=== PATIENT | female | born 1970 | race Caucasian/White ===

== ENCOUNTER → 2017-12-24 | Outpatient (CLI) | payer BC ==
[~2017-12-24] MED LIST: ALPR.5; ESCI10; LORA.5
[2017-12-25 02:46] LABS: Source VAGINAL
== END | disposition home or self-care (01) ==
LOC: LAB 10:45
PROVIDERS: Nurse Practitioner
DX: Z01.419 Encounter for gynecological examination (general) (routine) without abnormal findings (principal)
CPT/HCPCS: G0145

== ENCOUNTER → 2019-03-07 | Outpatient (CLI) | payer BC, OTHER | END | disposition home or self-care (01) | LOC: LAB SHORT 11:00 → PLD 11:00 | DX: L57.0 Actinic keratosis (principal); L98.8 Other specified disorders of the skin and subcutaneous tissue | CPT/HCPCS: 88305 ==

== ENCOUNTER → 2019-03-14 | Outpatient (CLI) | payer BC, OTHER | END | disposition home or self-care (01) | LOC: PLD 09:47 → LAB SHORT 09:47 | DX: D48.5 Neoplasm of uncertain behavior of skin (principal) | CPT/HCPCS: 88305 ==

== ENCOUNTER → 2019-12-21 | Outpatient (CLI) | payer BC, OTHER | END | disposition home or self-care (01) | LOC: LAB SHORT 11:46 → LAB 11:46 | PROVIDERS: Nurse Practitioner | DX: Z01.419 Encounter for gynecological examination (general) (routine) without abnormal findings (principal) | CPT/HCPCS: G0145 ==

== ENCOUNTER → 2022-01-17 | Outpatient (CLI) | payer BC, OTHER | END | disposition home or self-care (01) | LOC: LAB SHORT 08:09 | DX: L98.8 Other specified disorders of the skin and subcutaneous tissue (principal) | CPT/HCPCS: 88305 ==